=== PATIENT | male | born 1985 | race Two or more races ===

== ENCOUNTER → 2020-06-21 20:15 | Outpatient (REF) | payer OTHER, SELFPAY | LOC: HO.SL 20:15 | PROVIDERS: PCP Physician Assistant; Visit Provider Nurse Practitioner Family | DX: G47.33 Obstructive sleep apnea (adult) (pediatric) (principal); G47.61 Periodic limb movement disorder | CPT/HCPCS: 95810 ==

== ENCOUNTER → 2020-11-12 09:06 | Outpatient (BNVA) | payer SELFPAY | PROVIDERS: PCP Physician Assistant; Visit Provider Internal Medicine | DX: Z02.79 Encounter for issue of other medical certificate (principal) ==

== ENCOUNTER → 2022-02-02 07:32 | Outpatient (BNVA) | payer SELFPAY | PROVIDERS: PCP Physician Assistant; Visit Provider Internal Medicine | DX: Z02.79 Encounter for issue of other medical certificate (principal) ==

== ENCOUNTER 2022-07-30 14:26 | Emergency (ER) | payer SELFPAY ==
[2022-07-30 14:29] VITALS: BP 120/83; PULSE 64; RESP 18; O2SAT 99; BMI 30.8
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
== END 2022-07-30 16:30 | disposition home or self-care (01) ==
PROVIDERS: Emergency Provider Emergency Medicine Emergency Medical Services; PCP Physician Assistant
DX: S09.90XA Unspecified injury of head, initial encounter (principal); M54.2 Cervicalgia; R51.9 Headache, unspecified; V43.52XA Car driver injured in collision with other type car in traffic accident, initial encounter; Y93.9 Activity, unspecified; Y92.410 Unspecified street and highway as the place of occurrence of the external cause; Y99.9 Unspecified external cause status; Z79.899 Other long term (current) drug therapy
CPT/HCPCS: 99283

== ENCOUNTER → 2024-03-03 12:39 | Outpatient (BNVA) | payer SELFPAY | PROVIDERS: PCP Physician Assistant; Visit Provider Physician Assistant Medical | DX: Z02.79 Encounter for issue of other medical certificate (principal) ==

== ENCOUNTER 2025-05-25 09:37 | Emergency (ER) | payer OTHER, SELFPAY ==
--- NOTE | ~2025-05-25 | XR_ITS ---
EXAMINATION: XR FOOT 1-2 VIEWS LEFT, XR ANKLE 3 OR MORE VIEWS LEFT HISTORY: pain. step on while playing ball COMPARISON: There are no prior studies available for comparison. FINDINGS: Six views of the left foot and ankle are submitted. Osseous mineralization is normal. A triangular osseous density is seen in adjacent to the dorsal navicular which may be the result of old trauma. There is no acute fracture or dislocation. The joint spaces are preserved. The soft tissues are unremarkable. XR/XR ankle LT min 3V IMPRESSION: No evidence of acute fracture of the left foot or ankle. Electronically signed by: Quang Pyle MD 05/25/2025 10:15 AM [facility] [place]
--- NOTE | ~2025-05-25 | XR_ITS ---
EXAMINATION: XR FOOT 1-2 VIEWS LEFT, XR ANKLE 3 OR MORE VIEWS LEFT HISTORY: pain. step on while playing ball COMPARISON: There are no prior studies available for comparison. FINDINGS: Six views of the left foot and ankle are submitted. Osseous mineralization is normal. A triangular osseous density is seen in adjacent to the dorsal navicular which may be the result of old trauma. There is no acute fracture or dislocation. The joint spaces are preserved. The soft tissues are unremarkable. XR/XR foot LT 2V IMPRESSION: No evidence of acute fracture of the left foot or ankle. Electronically signed by: Quang Pyle MD 05/25/2025 10:15 AM [facility]
[2025-05-25 09:56] VITALS: BP 138/88; PULSE 84; RESP 16; TEMP 36.6; O2SAT 95; BMI 33.2
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
[2025-05-25 12:11] VITALS: BP 138/88; PULSE 84; RESP 16; TEMP 36.6; O2SAT 95
== END 2025-05-25 12:27 | disposition home or self-care (01) ==
PROVIDERS: Emergency Provider Emergency Medicine; PCP Physician Assistant
DX: S93.402A Sprain of unspecified ligament of left ankle, initial encounter (principal); M25.572 Pain in left ankle and joints of left foot; X58.XXXA Exposure to other specified factors, initial encounter; Y93.9 Activity, unspecified; Y92.9 Unspecified place or not applicable; Y99.8 Other external cause status
CPT/HCPCS: 73610; 73620; 96372; 99284; J1885

== ENCOUNTER → 2025-05-25 09:59 | Outpatient (BNV) | payer OTHER, SELFPAY | PROVIDERS: Emergency Provider Emergency Medicine; PCP Physician Assistant; Visit Provider Radiology Diagnostic Radiology | DX: M25.572 Pain in left ankle and joints of left foot (principal); M79.672 Pain in left foot | CPT/HCPCS: 73610; 73620 ==